=== PATIENT | female | born 1970 | race Caucasian/White ===

== ENCOUNTER 2017-10-20 09:00 | Inpatient (IN) | payer OTHER ==
[~2017-10-20] VITALS: Ht 172.7 cm; Wt 59.0 kg
[2017-10-20] MEDS ORDERED: CALCIUM500 M1 PO (10:48)
[2017-10-20] MEDS ORDERED: LEVO-T200 MCG PO (10:48)
[2017-10-20] MEDS ORDERED: COZAAR50 MG PO (10:48)
[2017-10-20] MEDS ORDERED: ROCALTROL0.25 MCG PO (10:49)
[2017-10-28] MEDS ORDERED: ULTRACET PO (16:06)
[2017-10-28] MEDS ORDERED: MACROBID 100 M100 MG PO (16:07)
== END 2017-10-29 10:30 | disposition home or self-care (01) | DRG 743 ==
LOC: O/R 10-26 05:00 → SURG 10-26 05:00 → OB/GYN 10-26 07:00 → SURG 10-26 14:44
PROVIDERS: Obstetrics & Gynecology Gynecology
PROC: 0TSD0ZZ Reposition Urethra, Open Approach (ICD-10-PCS; 2017-10-26)
PROC: 0TJB8ZZ Inspection of Bladder, Via Natural or Artificial Opening Endoscopic (ICD-10-PCS; 2017-10-26)
PROC: 0UT90ZL Resection of Uterus, Supracervical, Open Approach (ICD-10-PCS; principal; 2017-10-26 07:00)
PROC: 0UQF0ZZ Repair Cul-de-sac, Open Approach (ICD-10-PCS; 2017-10-26 07:00)
PROC: 0USG0ZZ Reposition Vagina, Open Approach (ICD-10-PCS; 2017-10-26 07:00)
DX: N81.2 Incomplete uterovaginal prolapse (principal); N39.3 Stress incontinence (female) (male); N80.0 Endometriosis of uterus